=== PATIENT | female | born 1975 | race Caucasian/White ===

== ENCOUNTER → 2016-11-25 07:45 | Outpatient (CLI) | payer OTHER | END | disposition home or self-care (01) | LOC: D.US 07:45 | DX: N85.2 Hypertrophy of uterus (principal); N92.6 Irregular menstruation, unspecified ==

== ENCOUNTER → 2017-01-13 19:23 | Outpatient (CLI) | payer OTHER | END | disposition home or self-care (01) | LOC: D.MAMMO 15:00 | DX: Z12.31 Encounter for screening mammogram for malignant neoplasm of breast (principal) ==